=== PATIENT | male | born 1935 | race Caucasian/White ===

== ENCOUNTER 2021-12-01 11:01 | Day surgery (SDC) | payer MEDICARE, OTHER ==
[2021-11-27 12:00] LABS: BASOPHILS # (AUTO) 0.1 X10'3 (0-0.2); BASOPHILS % (AUTO) 1.3 % (0-1); EOSINOPHILS # (AUTO) 0.1 X10'3 (0-0.9); EOSINOPHILS % (AUTO) 2.7 % (0-6); HEMATOCRIT 33.9 % (42.0-52.0); HEMOGLOBIN 11.2 g/dl (14.0-17.9); LYMPHOCYTES % (AUTO) 22.2 % (21-51); MEAN CORPUSCULAR HEMOGLOBIN 30.9 PG (27.0-31.0); MEAN CORPUSCULAR HGB CONC 33.1 g/dL (33.0-36.5); MEAN CORPUSCULAR VOLUME 93.4 FL (78-98); MONOCYTES # (AUTO) 0.6 X10'3 (0-0.9); MONOCYTES % (AUTO) 12.5 % (2-12); NEUTROPHILS # (AUTO) 2.8 X10'3 (1.8-7.7); NEUTROPHILS % (AUTO) 61.3 % (42-75); PLATELET COUNT 248 X10'3 (140-440); RED BLOOD COUNT 3.63 X10'6 (4.70-6.10); RED CELL DISTRIBUTION WIDTH 13.7 % (11.5-14.5); WHITE BLOOD COUNT 4.6 X10'3 (4.5-11.0)
[2021-11-27 12:16] LABS: ALBUMIN 3.1 G/DL (3.4-5.0); ANION GAP 8 (8-16); BLOOD UREA NITROGEN 27 MG/DL (7-18); BUN/CREATININE RATIO 26.2 (5.4-32.0); CALCIUM 8.4 MG/DL (8.5-10.1); CHLORIDE 108 MMOL/L (99-107); CREATININE 1.03 MG/DL (0.60-1.10); GLUCOSE 101 MG/DL (70-104); POTASSIUM 4.5 MMOL/L (3.5-5.1); SODIUM 142 MMOL/L (135-145); TOTAL CARBON DIOXIDE 26.1 MMOL/L (24-32); eGFR 68 ML/MIN
[2021-11-27 12:29] LABS: APTT 27 SECONDS (22-32)
[2021-12-01] VITALS (15 sets, daily range): BP systolic 115–159; BP diastolic 60–84
[~2021-12-01] VITALS: Ht 188 cm; Wt 107.9 kg
[2021-12-01] MEDS ORDERED: diphenhydrAMINE 25mg capsule PO PRN (11:25)
[2021-12-01] MEDS ORDERED: LORazepam 0.5 MG tablet PO PRN (11:25)
[2021-12-01] MEDS ORDERED: normal saline 1,000 ML IV SCH (11:25)
[2021-12-01] MEDS ORDERED: LIDOcaine/PRILOcaine 5gm cream TP ONE (11:25)
[2021-12-01] MEDS ORDERED: CYAN500T71 PO (12:03)
[2021-12-01] MEDS ORDERED: LIDOcaine 1% (10mg/ml)w/preservative inj. 20ml MDV ONE (13:27)
[2021-12-01] MEDS ORDERED: midazolam 1 mg/ML 2ml injection ONE (13:27)
--- NOTE | 2021-12-01 13:35 | NUR ---
To cath lab radiological technologist Report to Elliott DURAND
[2021-12-01] MEDS ORDERED: iohexol 350 MG/ML 50ML vial IV ONE (14:04)
--- NOTE | 2021-12-01 14:50 | NUR ---
Returned from pathology laboratory aide, received report from Elliott DURAND. Right groin site stable, soft, non-tender, dressing CD&I. Pulses +. Drowsy but awakens easily follows commands, denies pain.
[2021-12-01] MEDS ORDERED: normal saline 1000ml 1,000 ML IV SCH (15:00)
--- NOTE | 2021-12-01 17:00 | NUR ---
Dr. Mildred Blackwell at bedside talking with , answering questions.
--- NOTE | 2021-12-01 17:15 | NUR ---
Pt awake, assisting pt to eat sandwich and drinking juice without problems, VSS, Right groin site stable, denies pain.
--- NOTE | 2021-12-01 18:30 | NUR ---
Written and verbal DC instructions given to pt and , both verbalize understanding.
--- NOTE | 2021-12-01 19:30 | NUR ---
Head of bed up 45 degrees pt saba well. Right groin site stable.
--- NOTE | 2021-12-01 19:45 | NUR ---
Pt sat at EOB, then stod at bedside with can marched in place, slightly unsteady on feet. Pt sat back down on EOB. RN retrieved a FWW, pt again stood at bedside marched in place with FWW, more steady on feet. Pt amb to rest room with FWW, gait steady. Pt has FWW at home, recommended to that pt uses FWW to get from car to home, agrees and verbalizes understanding.
--- NOTE | 2021-12-01 20:00 | NUR ---
PIV DC cath intact. assisting pt to get dressed.
--- NOTE | 2021-12-01 20:20 | NUR ---
DC to home with , transferred to private car via WC, Pt able to transfer self with min assist for stability.
[2021-12-02 06:03] LABS: ISTAT Hct MIX 33 %PCV (42-52); ISTAT O2 SATURATION MIX VENOUS 74 % (60-80); ISTAT SOURCE VEN
== END 2021-12-01 20:20 | disposition home or self-care (01) ==
LOC: SSTAY O 11:01
PROVIDERS: ATTEND Internal Medicine Interventional Cardiology
DX: R06.02 Shortness of breath (principal); I27.20 Pulmonary hypertension, unspecified; I48.91 Unspecified atrial fibrillation; I95.1 Orthostatic hypotension; I36.1 Nonrheumatic tricuspid (valve) insufficiency; E78.5 Hyperlipidemia, unspecified; Z85.828 Personal history of other malignant neoplasm of skin; Z85.46 Personal history of malignant neoplasm of prostate; Z79.899 Other long term (current) drug therapy; Z91.038 Other insect allergy status; Z91.040 Latex allergy status
CPT/HCPCS: 36415; 80048; 82803; 85014; 85025; 85610; 85730; 93005; 93451; 99152; 99153; C1751; C1769; J1644; J2250; J3490; J7030; Q0163; Q9967; A4620; A6258